=== PATIENT | female | born 1980 | race Caucasian/White ===

== ENCOUNTER 2017-06-07 22:58 | Emergency (ER) | payer OTHER ==
[~2017-06-07] VITALS: Ht 149.9 cm; Wt 81.7 kg
[~2017-06-07 22:58] MED LIST: AMPICILLIN SOD500 MG INJ; CEPHALEXIN500 MG PO; IBUPROFEN800 MG PO; NORCO 5-325 TA1 EACH; NORCO 5-325 TA1 EACH PO; WELLBUTRIN XL150 MG PO
[2017-06-07] MEDS ORDERED: AUGMENTIN 875-1 EACH PO (23:28)
[2017-06-07] MEDS ORDERED: TRAMADOL HCL50 MG PO (23:28)
== END 2017-06-07 23:36 | disposition home or self-care (01) ==
LOC: ED 22:58
DX: K08.89 Other specified disorders of teeth and supporting structures (principal); F32.9 Major depressive disorder, single episode, unspecified; F17.200 Nicotine dependence, unspecified, uncomplicated; Z88.1 Allergy status to other antibiotic agents; Z79.899 Other long term (current) drug therapy
CPT/HCPCS: 99283

== ENCOUNTER 2017-12-24 18:15 | Emergency (ER) | payer OTHER ==
[~2017-12-24] VITALS: Ht 149.9 cm; Wt 81.7 kg
[~2017-12-24 18:15] MED LIST changes: +AUGMENTIN 875-1 EACH PO; +TRAMADOL HCL50 MG PO
[2017-12-24] MEDS ORDERED: BUPROPION XL300 MG PO (19:13)
[2018-02-27] MEDS ORDERED: BUPRENORPHIN-N1 EACH SL (16:13)
[2018-02-27] MEDS ORDERED: MILK THISTLE175 MG PO (16:14)
[2018-03-12] MEDS ORDERED: SUBOXONE 2 MG-1 EAC2 SL (14:09)
[2018-03-19] MEDS ORDERED: ONDANSETRON ODT8 MG PO (09:04)
[2018-03-19] MEDS ORDERED: DEXAMETHASONE4 MG PO (09:05)
== END 2017-12-24 19:46 | disposition home or self-care (01) ==
LOC: ED 18:15
DX: R22.1 Localized swelling, mass and lump, neck (principal); F32.9 Major depressive disorder, single episode, unspecified; F17.200 Nicotine dependence, unspecified, uncomplicated; Z88.1 Allergy status to other antibiotic agents; Z79.899 Other long term (current) drug therapy
CPT/HCPCS: 99282

== ENCOUNTER 2018-02-28 10:58 | Day surgery (SDC) | payer OTHER ==
[~2018-02-28] VITALS: Ht 149.9 cm; Wt 86.6 kg
[~2018-02-28 10:58] MED LIST changes: +BUPRENORPHIN-N1 EACH SL; +BUPROPION XL300 MG PO; +MILK THISTLE175 MG PO
--- NOTE | 2018-02-28 12:42 | NUR ---
02/28/18 1242 Jessica Lorenz 1220 PT ARRIVED DROWSY, WITH EYES OPEN AND TALKING. RESP EVEN AND UNLABORED. 1240 PT FAMILY AT BEDSIDE PER PT REQUEST. PT AWAKE AND TALKING. DENIES PAIN AND NAUSEA.
[2018-03-12] MEDS ORDERED: SUBOXONE 2 MG-1 EAC2 SL (14:09)
[2018-03-19] MEDS ORDERED: ONDANSETRON ODT8 MG PO (09:04)
[2018-03-19] MEDS ORDERED: DEXAMETHASONE4 MG PO (09:05)
== END 2018-02-28 12:58 | disposition home or self-care (01) ==
LOC: OPS 10:58 → DS 10:58 → OPS 12:00 → DS 12:00 → OPS 12:58
PROVIDERS: Specialist
PROC: 07DR3ZX Extraction of Iliac Bone Marrow, Percutaneous Approach, Diagnostic (ICD-10-PCS; 2018-02-28)
PROC: 079T3ZX Drainage of Bone Marrow, Percutaneous Approach, Diagnostic (ICD-10-PCS; principal; 2018-02-28 12:00)
DX: C81.11 Nodular sclerosis Hodgkin lymphoma, lymph nodes of head, face, and neck (principal); F32.9 Major depressive disorder, single episode, unspecified; F17.210 Nicotine dependence, cigarettes, uncomplicated; E66.9 Obesity, unspecified; D47.3 Essential (hemorrhagic) thrombocythemia; Z88.1 Allergy status to other antibiotic agents
CPT/HCPCS: 85025; 99152; 99153; J2250; J3010; J7120

== ENCOUNTER 2018-03-08 22:17 | Emergency (ER) | payer OTHER ==
[~2018-03-08] VITALS: Ht 149.9 cm; Wt 81.7 kg
[2018-03-08] MEDS ORDERED: ATIVAN1 MG PO (23:52)
[2018-03-08] MEDS ORDERED: AUGMENTIN 875-1 EACH PO (23:52)
[2018-03-12] MEDS ORDERED: SUBOXONE 2 MG-1 EAC2 SL (14:09)
[2018-03-19] MEDS ORDERED: ONDANSETRON ODT8 MG PO (09:04)
[2018-03-19] MEDS ORDERED: DEXAMETHASONE4 MG PO (09:05)
== END 2018-03-09 00:10 | disposition home or self-care (01) ==
LOC: ED 22:17
DX: Z48.817 Encounter for surgical aftercare following surgery on the skin and subcutaneous tissue (principal); F17.200 Nicotine dependence, unspecified, uncomplicated; Z88.1 Allergy status to other antibiotic agents; Z79.899 Other long term (current) drug therapy
CPT/HCPCS: 99283

== ENCOUNTER 2018-06-15 13:12 | Emergency (ER) | payer OTHER ==
[~2018-06-15] VITALS: Ht 152.4 cm; Wt 84.8 kg
[~2018-06-15 13:12] MED LIST changes: +ATIVAN1 MG PO; +DEXAMETHASONE4 MG PO; +EXCEDRIN MIGRA1 EAC2 PO; +IMODIUM A-1 MG/7.5 M PO; +ONDANSETRON ODT8 MG PO; +SUBOXONE 2 MG-1 EAC2 SL
[2018-06-15] MEDS ORDERED: LEVAQUIN500 MG PO (13:26)
== END 2018-06-15 14:36 | disposition home or self-care (01) ==
LOC: ED 13:12
DX: L03.313 Cellulitis of chest wall (principal); F32.9 Major depressive disorder, single episode, unspecified; F17.200 Nicotine dependence, unspecified, uncomplicated; Z88.1 Allergy status to other antibiotic agents; Z79.899 Other long term (current) drug therapy
CPT/HCPCS: 85025; 99283

== ENCOUNTER 2018-06-18 23:27 | Emergency (ER) | payer OTHER ==
[~2018-06-18] VITALS: Ht 152.4 cm; Wt 84.8 kg
[~2018-06-18 23:27] MED LIST changes: +LEVAQUIN500 MG PO; +ONDANSETRON HCL8 MG PO; -ONDANSETRON ODT8 MG PO
[2018-06-20] MEDS ORDERED: DOXORUBICIN IV (13:26)
[2018-06-20] MEDS ORDERED: DACARBAZINE IV (13:27)
[2018-06-20] MEDS ORDERED: VINBLASTIN10 MG/10 M IV (13:27)
== END 2018-06-19 02:42 | disposition home or self-care (01) ==
LOC: ED 23:27
DX: L03.313 Cellulitis of chest wall (principal); F32.9 Major depressive disorder, single episode, unspecified; F17.200 Nicotine dependence, unspecified, uncomplicated; Z88.1 Allergy status to other antibiotic agents; Z79.899 Other long term (current) drug therapy
CPT/HCPCS: 76604; 99283

== ENCOUNTER 2018-06-19 15:54 | Inpatient (IN) | payer OTHER ==
[~2018-06-19] VITALS: Ht 152.4 cm; Wt 83.0 kg
--- NOTE | 2018-06-20 09:50 | CONS ---
[facility] [address], [place] [address] Signed DATE OF CONSULTATION: 06/19/2018 CHIEF COMPLAINT: Pain and redness over right chest paug-D-bvqddgix site. HISTORY OF PRESENT ILLNESS: Queenie is a 37-year-old female, who was diagnosed with Hodgkin lymphoma from the right neck biopsy. She has been going through her chemotherapy with her medical oncologist. She is maybe a little half-way or slightly more than half-way through. She had her last chemotherapy almost a week ago. Within a couple of days afterward, she started noticed pain and erythema and warmth over the efhb-K-tfnjlnah site on her right chest wall. She has actually been in our ER I believe 3 times now and was given antibiotics. She came back when the erythema and pain were increasing. She had an ultrasound done today and of course there was fluid around the port itself. She was given vancomycin, Levaquin, and I was asked to admit her as a general surgeon on-call. In the meantime, I did have her medical service see her as well. Fortunately, she is not thrombocytopenic currently and otherwise is doing well and seems to be nonseptic. PAST MEDICAL HISTORY: Hodgkin lymphoma. PAST SURGICAL HISTORY: Right subclavian bnxa-Q-wmrlzzue, D and C, and right cervical biopsy with Dr. Sanjeev Willson. SOCIAL HISTORY: She does not smoke or drink. Dr. Sanjeev Willson is her ear, nose, and throat surgeon. Dr. Shannon Cruz is her medical oncologist. She is single, but lives with her boyfriend, who works for a local [employer]. She has one son, who is 9 years old. 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 Her mom is Joy Hastings at [phone]. She prefers our [facility]. FAMILY HISTORY: Mom and dad are both healthy. REVIEW OF SYSTEMS: She had 10 systems reviewed and she is healthy except for the Hodgkin lymphoma. ALLERGIES: Cephalexin. MEDICATIONS: 1. Lorazepam. Electronically Signed By: ANGELICA CHRISTENSEN MD 06/20/18 0950 PATIENT NAME: QUEENIE HASTINGS CONSULTATION DATE OF : 84 REPORT #: [id number] PHYSICIAN: ANGELICA CHRISTENSEN MD PCP: SHANNON CRUZ MD REPORT IS CONFIDENTIAL AND NOT TO BE RELEASED WITHOUT AUTHORIZATION [facility] [address], [place] [address] Signed 2. Levaquin. 3. Bupropion. 4. Zofran. 5. Dexamethasone. 6. Aspirin. 7. Imodium. PHYSICAL EXAMINATION: VITAL SIGNS: Blood pressure is 110/41, heart rate is 102, respiratory rate 16, temperature is 98.0, she is 100% on room air, she is 5 feet tall, at 83 kg. GENERAL: Cesia is 37-year-old female, who is all sitting supine semi-recumbent in her hospital bed, watching TV. Her mom and boyfriend in the room. She does not appear systemically ill or toxic. LUNGS: Clear to auscultation bilaterally. HEART: Regular rate and rhythm. ABDOMEN: Soft, nontender. She has some very localized redness and pain and warmth over the kyrk-D-pklgxhip site, maybe 2.5 or 3 cm at most in diameter. SKIN: No breakthrough in the skin currently. LABORATORY DATA: Her white blood count is 6.4, hemoglobin 12, neutrophils 63, BUN 11, creatinine 0.85. Lactic acid 0.9. Liver function tests negative. Albumin is 4. RADIOGRAPHIC STUDIES: Ultrasound of the right chest wall was performed and there was some fluid around her port. ASSESSMENT AND PLAN: Queenie is a 37-year-old female with Hodgkin lymphoma half-way through her chemotherapy. She has developed an infection of her right chest wall port site. I explained to Queenie that no amount of antibiotics will help. We will have to remove the dhuk-C-zqvwfzit and then leave the wound open to heal in secondarily and once that infection is cleared, she can have a new lqll-L-xlxdgcgr placed either by myself or her other surgeon. I have reviewed with her remove of the rcjv-C-jmbqssiq. She understands and she will be sedated. We have used some local anesthetic. We will actually do this in the OR under sterile conditions and I will use an absorbable suture around the catheter tunnel site to close it. She has expressed understanding and agrees above plan. Angelica Christensen MD Electronically Signed By: ANGELICA CHRISTENSEN MD 06/20/18 0950 PATIENT NAME: QUEENIE HASTINGS CONSULTATION DATE OF : 84 REPORT #: [id number] PHYSICIAN: ANGELICA CHRISTENSEN MD PCP: SHANNON CRUZ MD REPORT IS CONFIDENTIAL AND NOT TO BE RELEASED WITHOUT AUTHORIZATION [address] [address] Signed ALB/MODL /[id number] cc: MD Sanjeev Chandler MD Andrew L Bower, MD Copies: SHANNON CRUZ MD, GARY MD BOWER, ANDREW L MD ~ Electronically Signed By: ANGELICA CHRISTENSEN MD 06/20/18 0950 PATIENT NAME: QUEENIE HASTINGS CONSULTATION DATE OF : 84 REPORT #: [id number] PHYSICIAN: ANGELICA CHRISTENSEN MD PCP: SHANNON CRUZ MD REPORT IS CONFIDENTIAL AND NOT TO BE RELEASED WITHOUT AUTHORIZATION
[2018-06-20] MEDS ORDERED: DOXORUBICIN IV (13:26)
[2018-06-20] MEDS ORDERED: DACARBAZINE IV (13:27)
[2018-06-20] MEDS ORDERED: VINBLASTIN10 MG/10 M IV (13:27)
--- NOTE | 2018-06-21 08:04 | OR ---
[facility] [address] [place], [place] [address] Signed DATE OF OPERATION: 06/20/2018 SURGEON: Angelica Christensen MD PREOPERATIVE DIAGNOSES: 1. Infected right subclavian Port-A-Cath. 2. Hodgkin lymphoma. POSTOPERATIVE DIAGNOSES: 1. Infected right subclavian Port-A-Cath. 2. Hodgkin lymphoma. PROCEDURE: Removal of Port-A-Cath. ESTIMATED BLOOD LOSS: None. INDICATIONS: Queenie is a 37-year-old female who earlier in the year was diagnosed with Hodgkin lymphoma through a right cervical lymph node biopsy. She is about long-term through her chemotherapy. She has been using a right subclavian Port-A-Cath. Unfortunately that turn red with pain and warmth. She has been through the ER and made no improvements obviously with antibiotics. Consequently, she was admitted to the hospital and given initially vancomycin and Levaquin per our Internal Medicine service. I have been asked to see her to remove the Port-A-Cath. I had met with her last night late after operating and I believe with her mother as well. We could easily see the infected Port-A-Cath. I explained to Queenie simple matter to sedate her will inject some local anesthetic around it and remove that Port-A-Cath. We used absorbable monofilament suture around the tunnel, so that there is no air embolism and no backbleeding. We will leave the pocket open at least initially to allow it to heal in secondarily and to respond to her antibiotics and once she gets further along with a good better granulation tissue, we could consider a delayed primary closure, but also take cultures at the time of the surgery. Once her infection is completely cleared, she will need another Port-A-Cath placed for ongoing chemotherapy. I have reviewed this with Queenie and her mom. They had expressed understanding and wished to proceed. PROCEDURE NOTE: I met with Queenie and her family again in our preop area. After this, we went back to our operating room and we placed Queenie in the reverse Trendelenburg position with Electronically Signed By: ANGELICA CHRISTENSEN MD 06/21/18 0804 PATIENT NAME: QUEENIE VELARDE OPERATIVE REPORT DATE OF : 84 REPORT #: [id number] PHYSICIAN: ANGELICA CHRISTENSEN MD PCP: SHANNON CRUZ MD REPORT IS CONFIDENTIAL AND NOT TO BE RELEASED WITHOUT AUTHORIZATION [facility] [address] [place] [id number] Signed appropriate padding and monitoring. She was given monitored anesthesia care per our nurse lcsw. The entire right chest wall was prepped and draped in the usual sterile fashion. The area on the chest wall around the Port-A-Cath was then copiously injected with local anesthetic. After this, we used her previous incision. We opened it up with a #15 blade knife. There was turbid fluid coursing the pocket, so we took our cultures. We then were able to explant the hub from underneath the subcutaneous pocket and we placed the 2-0 PDS pursestring suture around the tunnel going underneath the right clavicle. Once the Port-A-Cath was completely removed, the pursestring suture was tied down to seal the tunnel and then a 2nd pursestring suture was placed just a little bit deeper along the tunnel for added security. After this, the entire pseudocapsule will be removed with the help of the cautery. Underneath was fresh healthy adipose tissue. The wound was irrigated and suctioned out until clear. We left the wound open. We packed it with full-strength Dakin-soaked gauze. Dry gauze and tape were placed over that. Queenie was then transferred to her hospital bed and taken into recovery room in stable condition. We looked at the Port-A-Cath carefully. We can see that the full length of the Port-A-Cath was removed. All-in-all Queenie tolerated the procedure quite well. Angelica Christensen MD ALB/MODL /[id number] cc: MD Sanjeev De MD Robert C Quackenbush, MD Copies: ANGELICA CHRISTENSEN MD, GARY MD QUACKENBUSH, ROBERT C MD ~ Electronically Signed By: ANGELICA CHRISTENSEN MD 06/21/18 0804 PATIENT NAME: QUEENIE VELARDE OPERATIVE REPORT DATE OF : 84 REPORT #: [id number] PHYSICIAN: ANGELICA CHRISTENSEN MD PCP: SHANNON CRUZ MD REPORT IS CONFIDENTIAL AND NOT TO BE RELEASED WITHOUT AUTHORIZATION
[2018-06-22] MEDS ORDERED: NORCO 5-325 TA1 EACH PO (16:12)
== END 2018-06-22 16:20 | disposition home or self-care (01) | DRG 314 ==
LOC: ED 15:54 → MS 17:49
PROVIDERS: ADMIT Internal Medicine
DX: T80.212A Local infection due to central venous catheter, initial encounter (principal); A41.9 Sepsis, unspecified organism; C81.90 Hodgkin lymphoma, unspecified, unspecified site; E87.71 Transfusion associated circulatory overload; G43.909 Migraine, unspecified, not intractable, without status migrainosus; F32.9 Major depressive disorder, single episode, unspecified; F17.210 Nicotine dependence, cigarettes, uncomplicated
CPT/HCPCS: 00532; 36415; 36569; 71045; 80048; 80053; 80202; 83605; 83735; 84703; 85025; 85610; 85651; 96365; 96375; 99285; 99406; C1751; J1170; J1885; J1956; J2060; J2250; J2405; J2550; J2704; J3370; J3480; J7050; J7120

== ENCOUNTER 2022-02-19 17:16 | Emergency (ER) | payer OTHER ==
[~2022-02-19] VITALS: Ht 152.4 cm; Wt 102.1 kg
[~2022-02-19 17:16] MED LIST changes: +DACARBAZINE IV; +DOXORUBICIN IV; +VINBLASTIN10 MG/10 M IV
--- OUTSIDE RECORDS SUMMARY | 2022-02-19 17:18 | XMS ---
PreManage Notification: [place] Security [employer] Events No recent Security Events currently on file CRITERIA MET - [facility] CARE PROVIDERS NANCY Leach Internal Medicine: Medical Oncology 06/19/2018-Current SHANNON PHONE: [phone] Care Guidelines exist for the following facilities: [facility] ([facility] ( 02/29/2020 ) Care History Medical/Surgical 07/01/2018 [facility] Dr [facility]as and the Cancer Clinic are working very closely with this patient. - Please contact the cancer clinic when patient is seen in the ED Ext [phone]. E.D. VISIT COUNT (12 MO.) [address] [place] [address] TOTAL 1 NOTE: Visits indicate total known visits. ED/UCC VISIT TRACKING (12 MO.) 02/19/2022 17:16 [facility] OR TYPE: Emergency COMPLAINT: - DENTAL PAIN INPATIENT VISIT TRACKING (12 MO.) No inpatient visits to display in this time frame [email or web address]
[2022-02-19] MEDS ORDERED: AMOX TR-K CLV1 EAC1 PO (19:34)
[2022-02-19] MEDS ORDERED: ULTRAM50 MG PO (19:34)
== END 2022-02-19 20:09 | disposition home or self-care (01) ==
LOC: ED 17:16
DX: K04.7 Periapical abscess without sinus (principal); F17.200 Nicotine dependence, unspecified, uncomplicated; Z88.8 Allergy status to other drugs, medicaments and biological substances; Z88.1 Allergy status to other antibiotic agents; Z79.899 Other long term (current) drug therapy
CPT/HCPCS: 96372; 99282; J1885